=== PATIENT | male | born 1940 | race Caucasian/White ===

== ENCOUNTER 2018-03-05 11:41 | Emergency (ER) | payer MEDICARE, BC, OTHER ==
[~2018-03-05] VITALS: Ht 172.7 cm; Wt 102.5 kg
[2018-03-05 12:06] LABS: HEMATOCRIT 46.9 % (42.0-52.0); HEMOGLOBIN 15.9 gm/dL (14.0-18.0); MCH 33.6 pg (26.0-34.0); MCHC 33.9 g/dL (28.0-37.0); MCV 99.2 fL (80.0-100.0); MPV 9.2 fl. (7.2-11.1); NUCLEATED RBCS 0 /100WBC; PLATELET COUNT* 199 thou/uL (150-400); RBC 4.73 mil/uL (4.50-6.00); RDW-CV 14.4 % (10.5-14.5); WBC 14.2 thou/uL (4.0-11.0)
[2018-03-05 12:22] LABS: ANION GAP 21 mmol/L (7-16); BUN 10 mg/dL (7-18); CALCIUM 7.7 mg/dL (8.5-10.1); CHLORIDE 103 mmol/L (98-107); CO2 13 mmol/L (21-32); CREATININE 1.1 mg/dL (0.6-1.3); GLUCOSE 108 mg/dL (70-99); POTASSIUM 3.2 mmol/L (3.5-5.1); SODIUM 137 mmol/L (136-145)
[2018-03-05 12:28] LABS: ALBUMIN 3.2 g/dL (3.4-5.0); ALKALINE PHOSPHATASE 79 U/L (46-116); SGOT 24 U/L (15-37); SGPT 28 U/L (30-65); TOTAL BILIRUBIN 0.5 mg/dL (<0.1-1.0); TOTAL PROTEIN 6.2 g/dL (6.4-8.2); TROPONIN-I LEVEL <0.06 ng/mL (<0.06)
[2018-03-05 12:31] LABS: APTT 27.9 Seconds (25.0-31.3)
[2018-03-05 12:36] LABS: ABSOLUTE BASOPHILS 0.1 thou/uL (0.0-0.2); ABSOLUTE EOSINOPHILS 0.3 thou/uL (0.0-0.7); ABSOLUTE LYMPHOCYTES 8.1 thou/uL (0.8-5.3); ABSOLUTE MONOCYTES 0.7 thou/uL (0.0-1.2); ATYPICAL LYMPHS 8 %; PLATELET ESTIMATE ADEQUATE
[2018-03-05 14:04] LABS: POC CA IONIZED 4.3 mg/dL (4.5-5.3); POC CREATININE 0.7 mg/dL (0.6-1.3); POC HEMOGLOBIN 14.6 g/dL (12.0-17.0); POC POTASSIUM 3.2 mmol/L (3.5-4.9)
[2018-03-05 14:31] VITALS: BP 153/92
--- NOTE | 2018-03-05 16:35 | EKG ---
[place] [address] ELECTROCARDIOGRAM REPORT Name: MARIKA ELENA Room: [facility]#: [id number] Admission: 03/05/18 Attend Phys: Discharge: 03/05/18 Date of : 40 Report #: [id number] THIS REPORT FOR: //name// [facility] ED Test Date: 2018-03-05 Test Time: 12:05:13 Pat Name: MARIKA ELENA Department: Room: Gender: M Table Hand: Joshua MAN : 1940 Requested By: Bandar Tobias Order Number: [id number] Gunner MD: Anders Lyles Measurements Intervals [employer] Rate: 94 P: 47 [place]: 141 QRS: 64 QRSD: 161 T: 47 QT: 394 QTc: 493 Interpretive Statements Sinus rhythm Right bundle branch block No previous ECG available for comparison Electronically Signed On 03-05-2018 16:34:57 [employer] by Anders Lyles [email or web address] <ELECTRONICALLY SIGNED> By: Anders Lyles MD, [facility] 03/05/18 1634 1205 1205 Anders Lyles MD, FACC /EPI
== END 2018-03-05 14:33 | disposition short-term general hospital (02) ==
LOC: M.ERS 11:41 → EDBD 11:41 → M.ERS 14:33
PROVIDERS: Family Medicine
DX: R55 Syncope and collapse (principal); R56.9 Unspecified convulsions; G93.89 Other specified disorders of brain; Z91.013 Allergy to seafood